=== PATIENT | male | born 1980 | race Caucasian/White ===

== ENCOUNTER 2017-03-07 08:57 | Emergency (ER) | payer OTHER ==
[~2017-03-07 08:57] MED LIST: CLON0.2T PO; DILA4TAB10 PO; GABA300C3 PO; IBUP400 PO
[2017-03-07 08:58] VITALS: BP 144/83; PULSE 94; RESP 16; TEMP 98.4; O2SAT 99
--- NOTE | 2017-03-07 09:09 | PD ---
HPI Chief Complaint: Oral / Dental Pain or Problem Time Seen by Provider: 09:09 Travel History International Travel<30 days: No Contact w/Intl Traveler<30days: No Traveled to known affect area: No History of Present Illness HPI 36-year-old male presents to [facility] with couple day history of left lower dental pain, with increasing pain to the whole jaw at this time, as well as sore throat this morning. Patient states he has difficulty opening his jaw secondary to his pain. He denies fever, chills, nausea, vomiting, or heartburn. She states he's been taking aspirin for his pain without significant improvement. Patient states no current medications. Patient has history of using clonidine, gabapentin, and Dilantin in the past. He denies any significant swelling in the throat. Pain is described as an 8 out of 10. He has no known drug allergies. PFSH Past Medical History Arthritis: No Asthma: No Autoimmune Disease: No Blood Disorders: No Anxiety: No Depression: No Heart Rhythm Problems: No Cancer: No Cardiovascular Problems: No High Cholesterol: No Chemotherapy: No Chest Pain: No Congestive Heart Failure: No COPD: No Cerebrovascular Accident: No Diabetes: No Diminished Hearing: No Endocrine: No GERD: No Genitourinary: No Hiatal Hernia: No Hypertension: Yes Immune Disorder: No Kidney Stones: No Musculoskeletal: Yes (CHRONIC BACK PAIN) Neurologic: Yes (CHRONIC "NERVE PAIN") Psychiatric: No Reproductive: No Respiratory: No Immunizations Current: Yes Migraines: No Radiation Therapy: No Renal Failure: No Seizures: No Sickle Cell Disease: No Sleep Apnea: No Thyroid Disease: No Ulcer: No Past Surgical History Abdominal Surgery: No AICD: No Arteriovenous Shunt: No Cardiac Surgery: No Ear Surgery: No Endocrine Surgery: No Eye Surgery: No Genitourinary Surgery: No Gynecologic Surgery: No Insulin Pump: No Joint Replacement: No Oral Surgery: No Pacemaker: No Thoracic Surgery: No Other Surgery: Yes (RT. SHOULDER 08/29/11) Social History Alcohol Use: Yes (UNABLE TO QUANTIFY-STATES DRINKING BEER TODAY) Tobacco Use: No Substance Use: No Allergies-Medications (Allergen,Severity, Reaction): Coded Allergies: No Known Allergies (Unverified , 03/07/17) Reported Meds & Prescriptions Reported Meds & Active Scripts Active Penicillin V Potassium 500 Mg Tab 500 Mg PO Q6H 10 Days Magic Mouthwash Adult Liq (Multi-Ingredient Mouthwash/Gargle) 120 Ml Susp 10 Ml SWISH-SPIT ACHS Each 5 mL contains: Nystatin 200,000 units, Diphenhydramine 4.25 mg, Viscous Lidocaine 10 mg, Moreno syrup 0.8 mL Ibuprofen 600 Mg Tab 600 Mg PO Q6H PRN Non-Aspirin Pain Relief ES (Acetaminophen) 500 Mg Tab 1,000 Mg PO Q6HR PRN Review of Systems General / Constitutional: No: Fever Eyes: No: Visual changes HENT: Positive: Sore Throat, Dental Difficulties, No: Headaches, Vertigo, Lightheadedness, Rhinitis, Rhinorrhea, Congestion, Nosebleed, Neck Stiffness, Neck Pain, Gingival Bleeding, Ear Discharge, Earache Cardiovascular: No: Chest Pain or Discomfort Respiratory: No: Shortness of Breath Gastrointestinal: No: Abdominal Pain Genitourinary: No: Dysuria Musculoskeletal: No: Pain Skin: No Rash Neurologic: No: Weakness Psychiatric: No: Depression Endocrine: No: Polydipsia Hematologic/Lymphatic: No: Easy Bruising Physical Exam Narrative GENERAL: Patient is in mild to moderate distress. SKIN: Warm and dry. Normal color. Normal turgor. No rash. HEAD: Atraumatic. Normocephalic. Patient has no significant obvious swelling but complains of pain with palpation along the left lower jawline. Seems to be centered at the base of the left lower first and second molars. EYES: Pupils equal and round. No scleral icterus. No injection or drainage. ENT: No nasal bleeding or discharge. Mucous membranes pink and moist. Pharynx is patent. No significant erythema, swelling, uvula is midline. No exudate. TMs are clear bilaterally. No obvious dental caries or drainage. NECK: Trachea midline. Mild left anterior tender cervical lymphadenopathy. No signs of Vinod's angina. CARDIOVASCULAR: Regular rate and rhythm. RESPIRATORY: No accessory muscle use. Clear to auscultation. Breath sounds equal bilaterally. MUSCULOSKELETAL: Extremities without clubbing, cyanosis, or edema. No obvious deformities. NEUROLOGICAL: Awake and alert. No obvious cranial nerve deficits. Motor grossly within normal limits. Five out of 5 muscle strength in the arms and legs. Normal speech. PSYCHIATRIC: Appropriate mood and affect; insight and judgment normal. Data Data Last Documented VS Vital Signs Date Time Temp Pulse Resp B/P Pulse Ox O2 Delivery O2 Flow Rate FiO2 8/5/17 08:58 98.4 94 16 144/83 99 Orders Penicillin V Potassium (Veetids) (03/07/17 09:15) Ketorolac Inj (Toradol Inj) (03/07/17 09:15) [id number] Liq (Magic Mouthwash Adul (03/07/17 09:15) [facility] Medical Decision Making Medical Screen Exam Complete: Yes Emergency Medical Condition: Yes Differential Diagnosis Dental pain. Dental abscess. Pharyngitis. Narrative Course Patient is medically stable at time of exam. Patient is given 500 mg Pen-Vee K by mouth now. Patient is given 60 mg Toradol IM. Patient is given Magic mouthwash 1. Patient is discharged home with Pen-Vee K 500 mg 4 times a day 10 days. Patient is given a prescription for Magic mouthwash as directed 120 mg with 1 refill. Patient is given a prescription for ibuprofen 600 mg 4 times a day #40. Patient is also given prescription for acetaminophen 500 mg she is to take 2 tablets every 6 hours when necessary #60 Patient is to follow-up with local dental resources as soon as possible. Patient can return to emergency Department with worsening symptoms as needed. Diagnosis Primary Impression: Dental abscess Referrals: Dentist Patient Instructions: Dental Abscess (ED), General Instructions Additional Instructions: Patient is discharged home with Pen-Vee K 500 mg 4 times a day 10 days. Patient is given a prescription for Magic mouthwash as directed 120 mg with 1 refill. Patient is given a prescription for ibuprofen 600 mg 4 times a day #40. Patient is also given prescription for acetaminophen 500 mg she is to take 2 tablets every 6 hours when necessary #60 Patient is to follow-up with local dental resources as soon as possible. Patient can return to emergency Department with worsening symptoms as needed. Med/Other Pt SpecificInfo: Prescription(s) given Scripts Penicillin V Potassium 500 Mg [id number] Mg PO Q6H 10 Days Prov:Minnie Mcmillan MD 03/07/17 Nryevrdr-Udqoembtlgokeye-Jrnjwgidz Liq (Magic Mouthwash Adult Liq)120 Ml Susp10 Ml SWISH-SPIT ACHS #120 ML Ref 1 Each 5 mL contains: Nystatin 200,000 units, Diphenhydramine 4.25 mg, Viscous Lidocaine 10 mg, Moreno syrup 0.8 mL Prov:Minnie Mcmillan MD 03/07/17 Ibuprofen 600 Mg [id number] Mg PO Q6H PRN (Pain/Inflammation) #40 TAB Prov:Minnie Mcmillan MD 03/07/17 Acetaminophen (Non-Aspirin Pain Relief ES)500 Mg Tab1,000 Mg PO Q6HR PRN (PAIN) #60 TAB Prov:Minnie Mcmillan MD 03/07/17 Disposition: 01 DISCHARGE HOME Condition: Stable [place] Mar 07, 2017 09:09
[2017-03-07] MEDS ORDERED: PENICILLIN V POTASSIUM 500 MG TAB PO ONE (09:15)
[2017-03-07] MEDS ORDERED: KETOROLAC TROMETHAMINE 60 MG/2 ML (IM) VIAL IM ONE (09:15)
[2017-03-07] MEDS ORDERED: NYSTAT/DIPHENHY/LIDO MOUTHWASH (Adult) 120ML SWISH-SPIT ONE (09:15)
[2017-03-07] MEDS ORDERED: PENI500T PO (09:19)
[2017-03-07] MEDS ORDERED: MAGICADU2 SWISH-SPIT (09:19)
[2017-03-07] MEDS ORDERED: NON-500T13 PO (09:19)
[2017-03-07] MEDS ORDERED: IBUP-232 PO (09:19)
== END 2017-03-07 09:52 | disposition home or self-care (01) ==
LOC: NEPD 08:57
DX: K04.7 Periapical abscess without sinus (principal); F10.10 Alcohol abuse, uncomplicated
CPT/HCPCS: 96372; 99284; J1885